=== PATIENT | female | born 1935 | race African-American/Black ===

== ENCOUNTER 2018-01-06 12:10 | Emergency (ER) | payer OTHER ==
[~2018-01-06] VITALS: Ht 152.4 cm; Wt 49.9 kg
--- NOTE | ~2018-01-06 | EKG ---
[facility] [place] [address] ELECTROCARDIOGRAM REPORT Name: RUBINSCOTTDONA Room #: REG GEORGIE [place]#: [id number] Admission: 01/06/18 Attend Phys: Discharge: Date of : 39 Report #: [id number] THIS REPORT FOR: //name// [facility] ED Test Date: 2018-01-06 Test Time: 12:54:05 Pat Name: YE CONKLIN Department: Room: Gender: F Forensic Scientist: [facility] : 1935 Requested By: Kathy Lee Order Number: [id number] MD: Anton Figueredo Measurements Intervals [place] Rate: 91 P: 0 MS: 178 QRS: 64 QRSD: 105 T: 30 QT: 378 QTc: 466 Interpretive Statements Sinus rhythm Repol abnrm suggests ischemia, anterolateral Minimal ST elevation, inferior leads No previous ECG available for comparison Electronically Signed On 01-06-2018 16:30:46 CDT by Anton Figueredo [email or web address] <ELECTRONICALLY SIGNED> By: Anton Figueredo MD, [facility] 01/06/18 1630 1254 1254 Anton Figueredo MD, FACC /EPI
[2018-01-06 13:17] LABS: HEMATOCRIT 26.8 % (37.0-47.0); HEMOGLOBIN 8.8 gm/dL (12.0-15.0); MCH 30.3 pg (26.0-34.0); MCHC 32.8 g/dL (28.0-37.0); MCV 92.3 fL (80.0-100.0); PLATELET COUNT 187 thou/uL (150-400); RBC 2.91 mil/uL (4.20-5.00); RDW 18.7 % (10.5-14.5); WBC 10.8 thou/uL (4.0-11.0)
[2018-01-06 13:38] LABS: CALCIUM 8.3 mg/dL (8.5-10.1); CREATININE 5.5 mg/dL (0.6-1.0); POTASSIUM 4.7 mmol/L (3.5-5.1)
[2018-01-06 13:44] LABS: ALBUMIN 2.8 g/dL (3.4-5.0); DIRECT BILIRUBIN 0.1 mg/dL (<0.1-0.3); TOTAL BILIRUBIN 0.3 mg/dL (<0.1-1.0); TOTAL PROTEIN 6.8 g/dL (6.4-8.2)
[2018-01-06 13:46] LABS: ABSOLUTE NEUTROPHILS 9.2 thou/uL (1.4-8.2)
[2018-01-06 13:47] LABS: ANISOCYTOSIS 2+; HYPOCHROMASIA 1+
[2018-01-06 14:40] LABS: URINE COLOR YELLOW
[2018-01-06 14:43] LABS: URINE CLARITY CLOUDY
[2018-01-06 14:45] LABS: CASTS None Seen /LPF (None Seen); RENAL EPITHELIAL CELLS 4-10 Moderate /LPF (None Seen); WBC CLUMPS Moderate (None Seen)
[2018-01-06 14:46] LABS: BACTERIA-REFLEX >30 Many /HPF (None Seen); URINE RBC 3-10 Few /HPF (0-2); URINE WBC-REFLEX >25 Many /HPF (0-5)
[2018-01-06 14:47] LABS: CRYSTALS None Seen /LPF (None Seen); SQUAMOUS None Seen /LPF (0-3)
[2018-01-06 18:06] VITALS: BP 75/48
== END 2018-01-06 18:09 | disposition short-term general hospital (02) ==
LOC: ER 12:10
PROVIDERS: Emergency Medicine
DX: I95.9 Hypotension, unspecified (principal); E87.2 Acidosis; E86.0 Dehydration; I12.0 Hypertensive chronic kidney disease with stage 5 chronic kidney disease or end stage renal disease; N18.6 End stage renal disease; J44.9 Chronic obstructive pulmonary disease, unspecified; F41.9 Anxiety disorder, unspecified; F03.90 Unspecified dementia, unspecified severity, without behavioral disturbance, psychotic disturbance, mood disturbance, and anxiety; Z85.118 Personal history of other malignant neoplasm of bronchus and lung